=== PATIENT | female | born 1950 | race Caucasian/White ===

== ENCOUNTER → 2022-04-10 | Outpatient (CLI) | payer MEDICARE, BC | LOC: WCC 07:42 | DX: S71.001A Unspecified open wound, right hip, initial encounter (principal); S70.01XA Contusion of right hip, initial encounter ==

== ENCOUNTER → 2022-04-23 | Outpatient (CLI) | payer MEDICARE, BC | LOC: WCC 07:17 | DX: S71.001D Unspecified open wound, right hip, subsequent encounter (principal); S70.01XD Contusion of right hip, subsequent encounter | CPT/HCPCS: G0463 ==

== ENCOUNTER → 2022-07-01 | Outpatient (CLI) | payer MEDICARE, BC | LOC: KOH-I 16:15 | DX: M16.12 Unilateral primary osteoarthritis, left hip (principal) | CPT/HCPCS: 73502 ==